=== PATIENT | female | born 1990 | race Caucasian/White ===

== ENCOUNTER → 2021-07-23 07:53 | Outpatient (CLI) | payer BC, SELFPAY ==
--- NOTE | ~2021-07-23 | MMUS_ITS ---
EXAMINATION: MM diagnostic josie BI w cortney, US breast LT limited HISTORY: Palpable left breast mass for 5 years with recent increase in size per patient. TECHNIQUE: Additional 3-D tomosynthesis images of the breasts were performed and synthetic 2-D images were generated. CAD analysis was submitted and interpreted. High resolution Limited left breast ultr asound was performed. COMPARISON: None BREAST PARENCHYMAL COMPOSITION: The breasts are heterogenously dense, which may obscure small masses FINDINGS: MAMMOGRAPHIC FINDINGS: There are no suspicious masses, calcifications or architectural distortion in the right breast to sug gest malignancy. In the area of palpable concern there is a spiculated mass in the upper central left breast anteriorl y. There are no suspicious calcifications. ULTRASOUND: Limited left breast ultrasound: At 12:00 in the area of palpable concern, 5 cm from the nipple there is an irregular shaped hypoechoic mass with dense posterior shadowing. Size is difficult to estimate due to the ill-defined contour of this mass. There is some marginal vascularity. IMPRESSION: 1. Irregular shaped left breast mass at 12:00, 5 cm from the nipple corresponding to spiculated mass seen on mammography. 2. Ultrasound-guided left breast biopsy recommended. BI-RADS category 5, highly suggestive of malignancy. Reviewed, dictated and finalized at location A. TIFICATION CLERK IMPRESSION: 1. Irregular shaped left breast mass at 12:00, 5 cm from the nipple correspondi ng to spiculated mass seen on mammography. 2. Ultrasound-guided left breast biopsy recommended. BI-RADS category 5, highly suggestive of malignancy.
== END ==
PROVIDERS: Visit Provider Obstetrics & Gynecology
DX: N63.20 Unspecified lump in the left breast, unspecified quadrant (principal); R92.8 Other abnormal and inconclusive findings on diagnostic imaging of breast
CPT/HCPCS: 76642; 77062; 77066; G0279